=== PATIENT | male | born 1990 | race Caucasian/White ===

== ENCOUNTER 2025-02-25 18:08 | Emergency (ER) | payer OTHER, SELFPAY ==
--- NOTE | ~2025-02-25 | XR_ITS ---
EXAMINATION: XR chest 2V 02/25/2025 18:43 INDICATION: Hemoptysis PROCEDURE: 2 view chest COMPARISON: No prior studies for comparison. FINDINGS: The lungs are clear. The cardiomediastinal silhouette is within normal limits. There are no pleural effusions. There is no pneumothorax suspected. IMPRESSION: 1: NO ACUTE CARDIOPULMONARY DISEASE. Reviewed, dictated and finalized at location I. TRY DIRECTOR
[2025-02-25 18:09] VITALS: BP 147/90; PULSE 112; RESP 16; TEMP 36.4; O2SAT 99
--- NOTE | 2025-02-25 19:44 | ECG_ITS ---
Test Date: 2025-02-25 21:31:57 Measurements Intervals [place] Rate: 94 P: 55 IN: 140 QRS: 32 QRSD: 89 T: 47 QT: 330 QTc: 413 Interpretive Statements SINUS RHYTHM NORMAL ECG No previous ECG available for comparison Electronically Signed On 02-26-2025 09:17:41 MERCHANDISING MANAGER by Juancarlos Morales D.O.
--- NOTE | 2025-02-25 19:44 | ED.GENADULT ---
HPI - General Adult General Chief complaint: Unspecified Stated complaint: throwing up blood Time Seen by Provider: 02/25/25 19:13 Source: patient and family Mode of arrival: ambulatory Limitations: no limitations History of Present Illness HPI narrative: Patient is a 34-year-old male presents to the emergency department complaining of his esophagitis flaring up. Patient notes his recent rhythms in the [employer], has a history of esophagitis and gastritis, last scope was back in December, has not gone and Gastroenterology around hearing it. Feels like his medications are working has been taking omeprazole daily. Denies regular alcohol use but admits to drinking a 6 pack of beer yesterday. Notes that he started to have vomiting throughout the day today that was dark red and brown in appearance and has a burning sensation from his epigastric region all way up to his throat. Denies any melena or hematochezia. Denies use of blood thinners. Related Data Allergies Allergy/AdvReac Type Severity Reaction Status Date / Time No Known Allergies Allergy Verified 02/25/25 18:13 Review of Systems Review of Systems: A 10 system review of systems was completed on the patient and is negative except for what is stated in the HPI. Nursing and ancillary documentation was reviewed. Exam Narrative: CONST: No acute distress. HENMT: Head is normocephalic and atraumatic. Tacky mucous membranes. No posterior oropharynx erythema. EYES: No scleral icterus. No conjunctival injection or pallor. PERRL. NECK: No meningeal signs. RESP: Able to speak in full sentences. Normal respiratory effort. CTAB. CARDIO: tachycardic rate. Regular rhythm. 2+ DP and radial pulses bilaterally. GI: Nondistended. No tenderness to palpation. Soft. : No CVA tenderness to palpation. SKIN: No rashes or lesions noted on exposed skin. NEURO: Oriented x3. Moves all extremities. EXTREM/MSK/BACK: No pedal edema. PSYCH: Normal affect. Course Vital Signs Vital signs: Vital Signs Temperature 97.6 F 02/25/25 18:09 Pulse Rate 112 H 02/25/25 18:09 Respiratory Rate 16 02/25/25 18:09 Blood Pressure 147/90 H 02/25/25 18:09 Pulse Oximetry 99 02/25/25 18:09 Temperature 97.6 F 02/25/25 18:09 Pulse Rate 90 02/26/25 01:50 Respiratory Rate 18 02/26/25 01:50 Blood Pressure 133/87 02/26/25 01:50 Pulse Oximetry 93 02/26/25 01:50 [facility] Narrative Medical decision making narrative: Patient presents with the above complaint. Initial vitals are remarkable for tachycardia. Physical examination as noted above. Plan discussed: Laboratory analysis, EKG, continues cardiac monitoring, continuous pulse oximetry, Protonix, IV fluids, GI cocktail, Zofran. Patient monitored for many hours in the emergency department and she has not had any vomiting, tolerating oral intake, on multiple reassessments patient notes that he feels well, vital signs are stable. No abdominal tenderness palpation. The patient has remained stable throughout the entire ED visit. Counseled patient regarding diagnostic results and potential diagnosis. Anticipatory guidance provided. Patient instructed to follow up with primary care physician in the next 2 days and Gastroenterology within the next 1 week. Patient counseled on: false reassurance from an emergency department evaluation; no current evidence of a medical emergency; return immediately for any new, recurrent, worsening, concerning, or refractory symptoms. Patient prescribed omeprazole, viscous lidocaine, Maalox. Prescription sent to preferred pharmacy. Medications discussed with patient. Additional verbal and printed discharge instructions were given and discussed with the patient. Patient verbally acknowledges understanding of condition and discharge instructions. All questions were answered to the patient's satisfaction. Patient is in agreement with the plan of care. The patient is stable for discharge and was discharged without incident. Differential Diagnosis Differential Diagnosis: Peptic ulcer disease, gastritis, metabolic derangement, electrolyte derangement, Jaz[place] tear. Lab Data [facility] Lab Attestation statement: I personally reviewed the patient's lab results. Lab results narrative: CBC reveals a white blood cell count 11.9, hemoglobin of 15.1. Coags are within normal limits. Comprehensive metabolic panel reveals a sodium 134, ALT of 60. lipase is 54. Troponin is less than 0.012. Magnesium is 1.8. Lactic acid of 0.8. Ethyl alcohol is less than 10. 02/25/25 21:10 02/25/25 21:10 Labs: Lab Results 02/25/25 02/25/25 Range/Units 21:01 21:10 WBC 11.9 H (4.5-10.0) K/mm3 RBC 5.83 (4.6-6.20) M/mm3 Hgb 15.1 (14.0-18.0) g/dL Hct 45.9 (42.0-52.0) % MCV 78.7 L (80-100) fl MCH 25.9 L (26-34) pg MCHC 32.9 (32-36) g/dl RDW 16.8 H (11.5-14.5) % Plt Count 281 (150-375) k/mm3 MPV 9.6 (7.4-10.4) fl Immature Gran % (Auto) 0.3 (0-0.5) % Neut % (Auto) 76.3 H (45.5-73.1) % Lymph % (Auto) 16.0 L (18.3-44.2) % [place] % (Auto) 6.7 (2.6-8.5) % Eos % (Auto) 0.3 (0-4.4) % Baso % (Auto) 0.4 (0.2-1.2) % Lymph # (Auto) 1.90 (0.9-3.2) K/mm3 [place] # (Auto) 0.8 H (0.1-0.6) K/mm3 Eos # (Auto) 0.0 (0-0.3) K/mm3 Baso # (Auto) 0.1 (0.0-0.1) K/mm3 Abs Immat Gran (auto) 0.03 (0.00-0.031) K/mm3 Absolute Neuts (auto) 9.1 H (1.3-6.7) K/mm3 Absolute Nucleated RBC 0.000 (0.0-0.012) K/mm3 Nucleated RBC % 0.0 (0.0-0.2) % PT 13.3 (11.1-14.7) Seconds INR 1.0 APTT 33.2 (22.3-36.8) Seconds Sodium 134 L (137-145) mmol/L Potassium 3.9 (3.4-5.0) mmol/L Chloride 102 (98-107) mmol/L Carbon Dioxide 25 (22-30) mmol/L Anion Gap 7 (4-12) mmol/L BUN 12 (9-20) mg/dL Creatinine 1.08 (0.7-1.3) mg/dL Estim Creat Clear Calc 109 ml/min Estimated GFR > 60 (59 - ) Glucose 103 (65-110) mg/dL Lactic Acid 0.8 (0.7-2.0) mmol/L Calcium 9.5 (8.4-10.2) mg/dL Magnesium 1.8 (1.6-2.3) mg/dL Total Bilirubin 0.8 (0.2-1.3) mg/dL AST 33 (17-59) U/L ALT 60 H (6-50) U/L Alkaline Phosphatase 119 (38-126) U/L Troponin I < 0.012 (0.000-0.034) ng/mL Total Protein 7.7 (6.3-8.2) g/dL Albumin 4.6 (3.5-5.1) g/dL Lipase 54 (23-300) U/L Ethyl Alcohol < 10 (<10) mg/dL Blood Type A Positive Antibody Screen Negative Imaging Data Radiologist's impression: ITS Impressions Chest X-Ray 02/25/25 18:44 IMPRESSION: 1: NO ACUTE CARDIOPULMONARY DISEASE. ECG Data EKG #1: Attestation: I personally reviewed and interpreted this ECG as follows: ECG completion date: 02/25/25 ECG completion time: 21:31 Interpretation: For rate of 94, rhythm is sinus rhythm, axis is normal, no ST elevations or depressions, no T-wave abnormalities, no old EKG on file for comparison. Discharge Plan Discharge Clinical Impression: Nausea & vomiting, Hematemesis Patient Disposition: Home Condition: Stable Instructions: Antibiotic Form, Gastritis (ED), Gastrointestinal Bleeding (ED), Diet for Stomach Ulcers and Gastritis (ED), Esophagitis (ED) Additional Instructions: Continue taking your omeprazole as prescribed, refrain from using any NSAIDs or alcohol. Take the Maalox as prescribed in the lidocaine as needed as prescribed. Follow-up with gastroenterology in the next 1-2 weeks for reassessment and likely endoscopy. Return immediately to the emergency department for any new or concerning symptoms especially inability keep anything down by mouth, difficulty breathing, lightheadedness, palpitations, dark tarry stools, bloody stool, new or concerning pain, new or concerning blood loss, or any emergent concerns for life, limb, eyesight. Patient Language: Azeri Prescriptions: New omeprazole 40 mg capsule,delayed release(DR/EC) 40 mg PO DAILY Qty: 30 0RF lidocaine HCl [Lidocaine Viscous] 2 % solution 10 ml PO Q6-12H MDD 60 ml (4 cups) PRN (Reason: pain) Qty: 600 0RF Rx Instructions: Swallow 5-15 ml every 3-4 hours, with at least 3 hours between doses, do not consume more than 60 mL in a 24 hour time span. alum-mag hydroxide-simeth [Maalox Advanced] 200-200-20 mg/5 mL suspension 10 ml PO QID PRN (Reason: dyspepsia) Qty: 3000 0RF Rx Instructions: administer between meals and at bedtime Follow-up/Referrals: PHYSICIAN,CORPORATE COMMUNICATIONS INTERN [Primary Care Provider, Internal Medicine] - 2 Days Neftaly Staton MD [Physician, Gastroenterology] - 1 Week Time of Disposition: 01:27
[2025-02-25] MEDS: SODIUM CHLORIDE 0.9% IV 1,000 ML 999 ML IV CONT (21:12)
[2025-02-25] MEDS: ONDANSETRON INJ 4 MG/2 ML VIAL IV PUSH (21:14)
[2025-02-25] MEDS: PANTOPRAZOLE SODIUM IV 40 MG VIAL 80 MG IV PUSH (21:15)
[2025-02-25 21:16] LABS: Hematocrit 45.9 % (42.0-52.0); Hemoglobin 15.1 g/dL (14.0-18.0); Immature Granulocyte Percent A 0.3 % (0-0.5); Lymphocytes Absolute Auto 1.90 K/mm3 (0.9-3.2); Mean Corpuscular HGB Conc 32.9 g/dl (32-36); Mean Corpuscular Hemoglobin 25.9 pg (26-34); Mean Corpuscular Volume 78.7 fl (80-100); Nucleated Red Blood Cells Absolute Auto 0.000 K/mm3 (0.0-0.012); Nucleated Red Blood Cells Perc 0.0 % (0.0-0.2); Platelet Count Result 281 k/mm3 (150-375); Red Blood Count 5.83 M/mm3 (4.6-6.20); White Blood Count 11.9 K/mm3 (4.5-10.0)
[2025-02-25] MEDS: BELLADONNA ALK/PHENOB ELIX 10 ML, MAG HYDROX/ALUMINUM HYD/SIMETH 30 ML, LIDOCAINE 2% VI... PO (21:18)
[2025-02-25 21:25] LABS: INR 1.0; Prothrombin Time 13.3 Seconds (11.1-14.7)
[2025-02-25 21:26] LABS: Partial Thromboplastin Time 33.2 Seconds (22.3-36.8)
[2025-02-25 21:29] LABS: Alanine Aminotransferase 60 U/L (6-50); Albumin Level 4.6 g/dL (3.5-5.1); Alkaline Phosphatase 119 U/L (38-126); Anion Gap 7 mmol/L (4-12); Aspartate Amino Transferase 33 U/L (17-59); Bilirubin,Total 0.8 mg/dL (0.2-1.3); Blood Urea Nitrogen 12 mg/dL (9-20); Calcium 9.5 mg/dL (8.4-10.2); Carbon Dioxide 25 mmol/L (22-30); Chloride 102 mmol/L (98-107); Estimated CRCL calculation 109 ml/min; Estimated Glomerular Filt Rate > 60; Glucose 103 mg/dL (65-110); Lipase 54 U/L (23-300); Magnesium 1.8 mg/dL (1.6-2.3); Potassium 3.9 mmol/L (3.4-5.0); Sodium 134 mmol/L (137-145); Total Protein 7.7 g/dL (6.3-8.2)
[2025-02-25 21:40] LABS: Troponin I < 0.012 ng/mL (0.000-0.034)
[2025-02-26 01:50] VITALS: BP 133/87; PULSE 90; RESP 18; O2SAT 93
== END 2025-02-26 01:51 | disposition home or self-care (01) ==
PROVIDERS: Physician Assistant; Emergency Provider Student in an Organized Health Care Education/Training Program
DX: K92.0 Hematemesis (principal); K20.90 Esophagitis, unspecified without bleeding
CPT/HCPCS: 36415; 71046; 80053; 82077; 83605; 83690; 83735; 84484; 85025; 85610; 85730; 86850; 86900; 86901; 93005; 96361; 96374; 96375; 99284; A9270; J2405; J2470; J7030